=== PATIENT | male | born 1950 | race Caucasian/White ===

== ENCOUNTER 2017-12-19 10:18 | Emergency (ER) | payer MEDICARE ==
[2017-12-19] MEDS ORDERED: Ibuprofen 600 MG TAB ONE (10:57)
--- NOTE | 2017-12-19 11:16 | RAD ---
CHEST 2 VIEWS: Date: 12/19/17 COMPARISON: 11/11/14. HISTORY: Trauma, pain to left side of chest, left ribs. FINDINGS: No pneumothorax, pleural fluid, focal consolidation, or alveolar edema. Heart and mediastinal contour s appear grossly unremarkable. Incompletely imaged lumbar spine postoperative hardware is present. Th ere is multilevel anterior osteophyte formation within the thoracic spine. IMPRESSION: No acute findings. POS: [facility]
--- NOTE | 2017-12-19 11:16 | RAD ---
2 VIEWS LEFT FOREARM: Date: 12/19/17 COMPARISON: None. HISTORY: Fall, trauma, pain. FINDINGS: There is no fracture or evidence of dislocation seen. Probable soft tissue swelling is seen involving the dorsal lateral aspect of the mid forearm. IMPRESSION: Soft tissue swelling with no displaced fracture or evidence of dislocation. POS: [facility]
== END 2017-12-19 11:34 | disposition home or self-care (01) ==
LOC: SCSER 10:18
DX: S50.12XA Contusion of left forearm, initial encounter (principal); I48.91 Unspecified atrial fibrillation; E11.9 Type 2 diabetes mellitus without complications; Z79.899 Other long term (current) drug therapy; Z79.82 Long term (current) use of aspirin; W18.00XA Striking against unspecified object with subsequent fall, initial encounter
CPT/HCPCS: 71046

== ENCOUNTER 2018-06-01 08:47 | Inpatient (IN) | payer MEDICARE ==
[2018-06-01] MEDS ORDERED: Acetaminophen 500 MG TAB ONE (09:04)
[2018-06-01] MEDS ORDERED: Adacel (T-DAP) 0.5 ML VIAL ONE (09:04)
[2018-06-01] MEDS ORDERED: Ondansetron PF 4 MG/2 ML Vial ONE (10:01)
[2018-06-01] MEDS ORDERED: Bacitracin Zinc 1 Packet ONE (10:12)
[2018-06-01 10:20] LABS: #Eosinphils 0.1 thou/uL (0.0-0.7); #Lymphocytes 0.8 thou/uL (1.20-3.40); #Monocytes 0.5 thou/uL (0.11-0.59); #Neutrophils 4.5 thou/uL (1.40-6.50); %Basophils 0.8 % (0.0-1.0); %Eosinophils 2.4 % (0.0-10.0); %Lymphocytes 13.4 % (21.0-51.0); %Monocytes 7.8 % (0.0-10.0); %Neutrophils 75.7 % (42.0-75.0); Hemoglobin 14.8 g/dL (14.0-18.0); Mean Corpuscular HGB CONC 32.2 g/dL (32.0-36.0); Mean Corpuscular Hemoglobin 27.9 pg (27.0-31.0); Mean Corpuscular Volume 86.6 fL (78.0-98.0); Mean Platelet Volume 7.7 fL (7.4-10.4); Platelet Count 122 thou/uL (130-400); RBC Distribution Width 13.6 % (11.5-14.5); Red Blood Cell (RBC) Count 5.29 mill/uL (4.70-6.10); White Blood Cell (WBC) Count 5.9 thou/uL (4.8-10.8)
[2018-06-01 10:23] LABS: INR-International Normal Ratio 1.1; Prothrombin Time 14.4 SEC (12.0-14.7)
[2018-06-01 10:24] LABS: PTT 34.6 SEC (22.9-36.1)
--- NOTE | 2018-06-01 10:36 | CT ---
CT BRAIN NONCONTRAST: DATE: 06/01/2018 TIME: 9:18 a.m. HISTORY: A 67-year-old male status post acute head trauma from fall. Dr. Jimenez reported the subdural hematoma, by telephone, to Dr. Edwardo Mena, of the [facility] Emergency Department, at 9:28 a.m. on 06/01/2018. FINDINGS: There is a small, thin right lateral subdural temporal acute hematoma, which measures up to 0.5 cm in transverse dimension. There is right posterior parietal scalp soft tissue swelling. There is no intraaxial acute hemorrhag e. No mass effect, midline shift, extraaxial fluid collection, or obstructive hydrocephalus. Tiny o ld lacunar infarction in the anterior limb of the left internal capsule and also at the head of the l eft caudate nucleus. No calvarial fracture identified. IMPRESSION: Acute, traumatic, small, right, lateral, supratentorial, subdural hematoma, currently without mass ef fect. CODE VINCE SIMMONS R POS: [facility]
--- NOTE | 2018-06-01 10:39 | CT ---
CT CERVICAL SPINE PERFORMED WITHOUT CONTRAST ENHANCEMENT: HISTORY: Neck pain after fall. FINDINGS: The vertebral bodies are normal in height. There is some prominent anterior osteophytic change. The re is mild disk narrowing at C4-C5, C5-C6, and C6-C7. The facets appear to be in normal alignment. At the C3-C4 level, there is some posterior osteophytic change, which may be related to calcification of the posterior longitudinal ligament. There is a mild degree of canal narrowing and some borderli ne bilateral foraminal narrowing. A similar osteophytic midline projection is seen at C5-C6, again w ith mild canal stenosis. Posterior osteophytic change at C6-C7 is also associated with mild canal na rrowing. There is no CT evidence for fracture. The lung apices are clear. IMPRESSION: No CT evidence of fracture of the cervical spine. POS: [facility]
[2018-06-01 10:44] LABS: ALT (SGPT) 24 U/L (8-55); AST (SGOT) 19 U/L (5-34); Albumin 3.8 g/dL (3.4-4.8); Alkaline Phosphatase 78 U/L (40-150); Anion Gap 13 mmol/L (10-20); BUN (Urea Nitrogen) 20 mg/dL (8.4-25.7); Bilirubin, Total 1.1 mg/dL (0.2-1.2); Calc. Creatinine Clearance 0 mL/min (70-130); Calcium 9.5 mg/dL (7.8-10.44); Carbon Dioxide 28 mmol/L (23-31); Chloride 104 mmol/L (98-107); Estimated GFR-MDRD 69; Globulin 2.8 g/dL (2.4-3.5); Glucose 162 mg/dL (80-115); Potassium 4.6 mmol/L (3.5-5.1); Protein, Total 6.6 g/dL (5.8-8.1); Sodium 140 mmol/L (136-145)
--- NOTE | 2018-06-01 12:36 | CON-2 ---
DATE OF CONSULTATION: 06/01/2018 ATTENDING PHYSICIAN: Dr. Ralph Su. HISTORY OF PRESENT ILLNESS: The patient is a 67-year-old male with a past medical history of coronary artery disease, atrial fibrillation, type 2 diabetes, peripheral neuropathy on daily 325 mg aspirin, presents to emergency department at [facility] for head injury foll owing mechanical fall. The patient reports he was getting out of bed this morning and lost his footi ng causing him to fall backwards and hitting his head on a metal table, began complaining of headache and some neck and shoulder pain following this event. He was evaluated at [facility] with CT of the head and neck which was notable for a small right-sided subdural hematoma without midline s hift. CT of the cervical spine was negative for acute injury. Neurosurgery was consulted for furthe r evaluation of this injury and seen this patient at the bedside at [facility]. He is complain ing of some bilateral shoulder discomfort and mild headache. He has a GCS of 15 and no focal neurolo gic deficits. PAST MEDICAL HISTORY: Peripheral neuropathy, coronary artery disease, atrial fibrillation, type 2 di abetes. PAST SURGICAL HISTORY: Laminectomy and diskectomy in 2015, right knee surgery x3, left knee surgery x3, cholecystectomy and hernia repair. SOCIAL HISTORY: Patient lives at home. He does not smoke, drink or use any drugs. FAMILY HISTORY: Noncontributory. CURRENT MEDICATIONS: Lyrica 150 mg tabs q.i.d., gabapentin 600 mg tabs 1200 mg every day, aspirin 32 5 mg tab 1 tab p.o. daily. REVIEW OF SYSTEMS: Per HPI. PHYSICAL EXAMINATION: CONSTITUTIONAL: Awake, alert, no acute distress. GCS of 15. VITAL SIGNS: BP is 116/71, pulse 90, respiration rate is 18, temperature is 97.9. The patient 99% o n room air. HEAD: He has a small laceration recently to the right posterior aspect of the head. EYES: PERRLA. Extraocular movements intact. NECK: Nontender to palpation over the cervical spine. He has mild tenderness to palpation over bila teral paraspinal musculature. CARDIOVASCULAR: Regular rate and rhythm. RESPIRATORY: The patient has symmetric chest expansion, he is breathing comfortably. BACK: Nontender to palpation. Free active range of motion. MUSCULOSKELETAL: Free active range of motion of all extremities. No focal motor weakness, no reflex asymmetry. NEUROLOGIC: A and O x4. GCS 15. Steady gait. ASSESSMENT AND PLAN: This is a 67-year-old male status post mechanical fall with a small right-sided subdural hematoma on 325 mg aspirin daily, who will be admitted to the ICU for q.1 neuro checks over the next 8 hours and repeat a[address] CT head. Head of the bed will be elevated at 30 degrees and systol ic blood pressure goal is less than 160. I discussed this plan with Dr. Su who also see the maribel valencia in the morning.
[2018-06-01 13:45] VITALS: BMI 35.2
[2018-06-01] MEDS ORDERED: HYDROcodone/Acetaminophen 5/325 mg Tablet PO PRN ×2 (13:50)
[2018-06-01] MEDS ORDERED: Ondansetron ODT 4 MG TAB SL PRN (13:50)
[2018-06-01] MEDS ORDERED: Ondansetron PF 4 MG/2 ML Vial IVP PRN ×2 (13:50→17:20)
[2018-06-01] MEDS ORDERED: Prevnar 13-Val Conj/PF 0.5 ML SYRINGE IM ONE (15:30)
[2018-06-01] MEDS ORDERED: traMADol HCl 50 MG TAB PO PRN ×2 (17:20)
[2018-06-01] MEDS ORDERED: Dextrose 50% Abboject 50 ML SYRINGE SLOW IVP PRN (17:20)
[2018-06-01] MEDS ORDERED: hydrALAZINE 20 MG/ML VIAL SLOW IVP PRN (17:20)
[2018-06-01] MEDS ORDERED: Sodium Chloride 0.9% 1,000 ML IV SCH (17:20)
[2018-06-01] MEDS ORDERED: Ondansetron ODT 4 MG TAB PO PRN (17:20)
[2018-06-01] MEDS ORDERED: Insulin Regular 300 UNITS/3 ML VIAL SC PRN (17:20)
[2018-06-01] MEDS ORDERED: Dextrose 5% in Water 1,000 ML IV PRN (17:20)
--- NOTE | 2018-06-01 17:27 | HP ---
DATE OF ADMISSION: 06/01/2018 REQUESTING PHYSICIAN: Edwardo Mena M.D. ATTENDING SURGEON: Dr. Marion. CONSULTATION: Neurosurgery, Dr. Su. HISTORY OF PRESENT ILLNESS: The patient is a 67-year-old man who reportedly got up this mo rning from his bed and suddenly fell over falling backwards, hitting the corner of a metal table. Th e patient is unsure of how long he had loss of consciousness, but states that it appeared to be very brief. His brought him to the Emergency Department in [facility] where he underwent evaluation and examination. It was noted to have a small right-sided subdural hematoma, at which marisa e we were asked to evaluate the patient for admission and obtain neurosurgical consultations. The pa tient does take a full strength aspirin per day, has a history of atrial fibrillation and diabetes. Patient states that he has fallen few times, but not to this degree over the last few weeks. He only had one other episode where he felt that he completely blacked out. The patient denies having evalu ation by his primary care provider for his syncope. The patient denies having any chest pain, shortn ess of breath, racing of heart or spinning effects before during or after his falls. PAST MEDICAL HISTORY: Coronary artery disease, type 2 diabetes, atrial fibrillation, peripheral neur opathy. PAST SURGICAL HISTORY: Hernia repair, cholecystectomy, left knee surgery x3, right knee surgery x2, laminectomy and diskectomy. FAMILY HISTORY: Diabetes. SOCIAL HISTORY: Patient works part-time at a store. He lives at home with his spouse. He denies dr shirin, tobacco or alcohol use. CURRENT MEDICATIONS: Lyrica, gabapentin, and aspirin. REVIEW OF SYSTEMS: Twelve point review of systems is negative as otherwise stated. PHYSICAL EXAMINATION: VITAL SIGNS: Temperature is 97.8, heart rate 71, blood pressure 134/93, respirations 16, oxygen satu ration is 98% on room air. GENERAL: Patient is awake, alert, and oriented x3. Kacey coma scale 15. He is sitting up on the side of the bed. The patient did undergo orthostatic vital signs and said that he did have a slight bit of dizziness upon standing, but not near the degree that he had early this morning. HEENT: Head is normocephalic with a small contusion and small abrasion/laceration to the right poste rior aspect. Eyes: Extraocular motion intact. PERRLA bilaterally. Ears are atraumatic without dis charge. Nose is atraumatic without discharge. Oropharynx is clear. NECK: Nontender. Trachea is midline. No JVD. CHEST: Clear to auscultation with good inspiratory and expiratory effort. HEART: Regular rate and rhythm. ABDOMEN: Soft, flat, nontender with active bowel sounds. Pelvis is stable. EXTREMITIES: Neurovascularly intact x4. Capillary refill is less than 3 seconds. Pulses are 2+. BACK: Atraumatic and nontender. LABORATORY DATA: White blood cell count 5.9, hemoglobin 14.8, hematocrit 45.8, platelets 122. Sodiu m 140, potassium 4.6, chloride 104, CO2 of 28, BUN 20, creatinine 1.06, glucose 162. LFTs are unrema rkable. PT 14, INR 1.1, PTT 35. RADIOGRAPHS: CT of the brain without contrast shows an acute, traumatic, small, right, lateral, supr atentorial, subdural hematoma currently without mass effect. CT of the C-spine without contrast show s no CT evidence of fracture of the cervical spine. ASSESSMENT AND PLAN: 1. Status post ground level fall. 2. Small right-sided subdural hematoma, on aspirin. 3. Small scalp contusion and abrasion. 4. Syncope. 5. History of atrial fibrillation. 6. History of diabetes. 7. History of peripheral neuropathy. Plan will be to admit to the [facility] for frequent neuro exams with the plan of a repeat head CT in the [facility], sooner if the patient has a decline of 2 points or more in his [place] coma scale. We will o rder EKG, orthostatic vitals, labs, echo, transthoracic and carotids for his syncopal workup. Nonnar cotic pain medication until his repeat CT. The evaluation, examination, laboratory and radiographic findings will be discussed with Dr. Marion after this dictation.
[2018-06-01] MEDS: Acetaminophen 500 MG TAB PO SCH ×2 (17:51→18:21)
--- NOTE | 2018-06-01 17:54 | CON ---
DATE OF CONSULTATION: 06/01/2018 REASON FOR CONSULTATION: Atrial fibrillation. HISTORY OF PRESENT ILLNESS: Mr. Donald is a 67-year-old gentleman who has a previous history of atr ial fibrillation. He states he see someone in our office, but cannot give me a name. He states he h as not been on anticoagulation therapy. It has been his choice. He states at one point he was on to o many medications and stopped them all about 2 years ago. He was followed by Dr. Davide Askew. He recently had a fall. He states his legs got weak. He states he did not pass out. He then develo ped a right-sided subdural hematoma. From a CV standpoint, he denies chest pain, pressure, heart flutters, palpitations, previous syncope. PAST MEDICAL HISTORY: As above including diabetes mellitus, peripheral neuropathy, laminectomy, disk ectomy, right knee surgery, cholecystectomy, hernia repair. SOCIAL HISTORY: No current tobacco or alcohol use. HOME MEDICATIONS: Lyrica, gabapentin, and aspirin. REVIEW OF SYSTEMS: A 10-point review of systems was reviewed and as above, otherwise negative. PHYSICAL EXAMINATION: VITAL SIGNS: Blood pressure 134/93, pulse 73, temperature afebrile. GENERAL: Patient is a pleasant male who is in no acute distress. The patient appears his stated age . NEUROLOGIC: The patient is alert and oriented times 3 with no focal neurologic deficits. HEENT: Sclerae without icterus. Mouth has moist mucous membranes with normal pallor. NECK: No JVD. Carotid upstroke brisk. No bruits bilaterally. LUNGS: Clear to auscultation with unlabored respirations. BACK: No scoliosis or kyphosis. CARDIAC: Irregularly irregular. No significant rubs, murmurs, thrills, or gallops noted throughout the precordium. PMI is not displaced. There is no parasternal heave. ABDOMEN: Soft, nontender, nondistended. No peritoneal signs present. No hepatosplenomegaly. No abnormal striae. EXTREMITIES: 2+ femoral and 2+ dorsalis pedis pulses. No cyanosis, clubbing, or edema. SKIN: No gross abnormalities. PERTINENT LABORATORY DATA: Hemoglobin 14.8, potassium 4.6, sodium 140, creatinine 1.06. IMPRESSION: 1. Atrial fibrillation. 2. Subdural hematoma. RECOMMENDATIONS: At this point, we will avoid any anticoagulation therapy due to recent subdural hem atoma. He is also not interested in pursuing any anticoagulation therapy. We would continue rate co ntrol. He appears to be in chronic atrial fibrillation. His symptoms per his history did not appear consistent with syncope. We would continue to monitor on tele.
[2018-06-01 18:18] LABS: Magnesium 1.9 mg/dL (1.6-2.6); Phosphorus 2.7 mg/dL (2.3-4.7)
[2018-06-01] MEDS: Famotidine 20 MG TAB PO SCH (20:24)
[2018-06-01] MEDS ORDERED: Pregabalin 75 MG CAP PO SCH (21:00)
[2018-06-01] MEDS ORDERED: Gabapentin 400 MG CAP PO SCH (21:00)
[2018-06-01] MEDS: Pregabalin 75 MG CAP PO SCH (22:51)
[2018-06-02] MEDS: Acetaminophen 500 MG TAB PO SCH ×3 (00:30→11:16)
[2018-06-02 04:15] LABS: #Eosinphils 0.2 thou/uL (0.0-0.7); #Lymphocytes 0.7 thou/uL (1.20-3.40); #Monocytes 0.4 thou/uL (0.11-0.59); #Neutrophils 3.1 thou/uL (1.40-6.50); %Lymphocytes 15.8 % (21.0-51.0); %Monocytes 9.4 % (0.0-10.0); %Neutrophils 70.8 % (42.0-75.0); Hemoglobin 13.5 g/dL (14.0-18.0); Mean Corpuscular HGB CONC 32.3 g/dL (32.0-36.0); Mean Corpuscular Hemoglobin 29.1 pg (27.0-31.0); Mean Platelet Volume 7.2 fL (7.4-10.4); Platelet Count 132 thou/uL (130-400); RBC Distribution Width 14.1 % (11.5-14.5); Red Blood Cell (RBC) Count 4.62 mill/uL (4.70-6.10); White Blood Cell (WBC) Count 4.4 thou/uL (4.8-10.8)
[2018-06-02 04:30] LABS: Anion Gap 11 mmol/L (10-20); BUN (Urea Nitrogen) 22 mg/dL (8.4-25.7); Calc. Creatinine Clearance 128 mL/min (70-130); Calcium 8.8 mg/dL (7.8-10.44); Carbon Dioxide 26 mmol/L (23-31); Chloride 103 mmol/L (98-107); Estimated GFR-MDRD 70; Glucose 153 mg/dL (80-115); Phosphorus 2.9 mg/dL (2.3-4.7); Potassium 3.8 mmol/L (3.5-5.1); Sodium 136 mmol/L (136-145)
[2018-06-02] MEDS: Gabapentin 400 MG CAP PO SCH ×2 (04:34→11:16)
[2018-06-02 04:54] LABS: Magnesium 1.8 mg/dL (1.6-2.6)
[2018-06-02] MEDS ORDERED: Tamsulosin HCl 0.4 MG CAP PO SCH (09:30)
--- NOTE | 2018-06-02 09:33 | ULT ---
BILATERAL CAROTID DUPLEX ULTRASOUND: HISTORY: Syncope. FINDINGS: Real-time color Doppler evaluation of the right and left carotid systems was performed. The left ashok e is very difficult to image. On the right side, peak systolic velocities of the common carotid were 95 cm/s. Internal carotid hanna ocities are 63 cm/s. External carotid velocities are 41 cm/s. On the left side, peak systolic velocities of the common carotid were 62 cm/s. Internal carotid velo cities were 27 cm/s. External carotid velocities were 41 cm/s. Vertebral flow is antegrade bilaterally. IMPRESSION: 1. Technically difficult examination with difficulty in imaging the left internal carotid artery. D istally, internal carotid could not be seen. Flow within the left internal carotid appears reduced r aising the possibility that there may be some flow-limiting lesion. I would recommend consideration for CT angiography of the neck for better assessment, particularly if the patient has symptoms that w ould relate to the left circulation. POS: [facility]
--- NOTE | 2018-06-02 09:38 | PRG ---
DATE OF SERVICE: 06/02/2018. SUBJECTIVE: The patient was seen and examined, I agree with Sangeetha Walton PA-C's evaluation on 08/2017. The patient is a 67-year-old man with a mechanical fall. He was taking an aspirin a day. H e has a very subtle right subdural hematoma, which is stable on followup. He was neurologically inta ct. The patient can safely be discharged and there are no specific followup recommendations. He can resu me his aspirin in 2 weeks.
--- NOTE | 2018-06-02 09:48 | HP ---
CHIEF COMPLAINT: Fall. HISTORY OF PRESENT ILLNESS: The patient is a 67-year-old male, who reports having to get up multiple times a night to urinate, said the last time was about 7:00 a.m. when he got up, lost his balance, f ell and hit the corner of a metal table on his back of his head, sustained a laceration, quite a bit of bleeding. He was brought in by EMS. He currently says he feels pretty good. His vision is okay. He is not having any numbness or tingling: No neck pain, no dyspnea. PAST MEDICAL HISTORY: Significant for diabetes, atrial fibrillation, coronary artery disease, and pe ripheral neuropathy. PAST SURGICAL HISTORY: He has had a hernia repair, cholecystectomy, he has had bilateral left total knee replacement, laminectomy and diskectomy. MEDICATIONS: Include Lyrica, gabapentin, and aspirin. SOCIAL HISTORY: He is . No tobacco or alcohol. PHYSICAL EXAMINATION: VITAL SIGNS: Temperature 97.9, pulse 90, blood pressure 144/95. GENERAL: He is a morbidly obese male, in no apparent distress. GCS of 15. He has some kamran in h is posterior scalp. There is no active bleeding, a small hematoma. HEENT: His pupils equal, round, and reactive. Extraocular motor intact. Pharynx clear. Good denti tion. NECK: Supple, no tenderness. His trachea is midline. LUNGS: Clear. HEART: Irregularly irregular. ABDOMEN: Morbidly obese, soft, nondistended, nontender. Pelvis is unremarkable. EXTREMITIES: He has bilateral well-healed surgical scars on his knees. Pulses are 1+ distally. He has normal neurologic function, sensation, and motor. BACK: Nontender. IMAGING: Brain CT shows a small right lateral supratentorial subdural hematoma without mass effect. Cervical spine CT is unremarkable. Carotid study is unremarkable. ASSESSMENT: Traumatic subdural hematoma. PLAN: We will observe Neurosurgical consult, Cardiology consult.
--- NOTE | 2018-06-02 10:03 | CT ---
PRELIMINARY REPORT/[facility]/EMERGENTY AFTER-HOURS PROCEDURE CT Head Without Intravenous Contrast EXAM DATE/TIME: 06/02/2018 4:22 AM CLINICAL HISTORY: 67 years old, male; Injury or trauma; Fall; Follow-up exam; Blunt trauma (contusions or hematomas); W ithout loss of consciousness; Patient HX: Follow up exam, PT has nueropathy in both legs TECHNIQUE: Axial computed tomography images of the head/brain without intravenous contrast. COMPARISON: CT Brain WO Con 06/01/2018 9:16 AM FINDINGS: Brain: Volume loss and chronic small vessel ischemic change. No brain edema. No intracranial hemorrha ge. Ventricles: Normal. No ventriculomegaly. Bones/joints: Normal. No acute fracture. Sinuses: Normal as visualized. No acute sinusitis. Mastoid air cells: Normal as visualized. No mastoid effusion. Soft tissues: Normal. IMPRESSION: No acute brain findings. Thank you for allowing us to participate in the care of your patient. Dictated and Authenticated by: Buster Giang MD 06/02/2018 4:52 AM Central Time ([place] & [place]) FINAL REPORT EMERGENT AFTER HOURS CT OF BRAIN PERFORMED WITHOUT CONTRAST ENHANCEMENT: HISTORY: Fall with head injury, followup. COMPARISON: Prior day's exam. FINDINGS: The ventricular and cisternal system is within normal limits for patient's age. There is some decrea sed attenuation of the periventricular white matter. A small right-sided subdural hematoma noted on the previous examination persists with some minimal residual subdural remaining. It is slightly less prominent than on the prior examination. No mass effect. No evidence of any fracture. The mastoid air cells and visualized sinuses are clear. IMPRESSION: 1. Slight decrease in the conspicuity to the right subdural hematoma which appears slightly smaller than on the prior examination. 2. This report is in disagreement with the temporary report that issued by [facility]. POS: [facility]
[2018-06-02] MEDS: Famotidine 20 MG TAB PO SCH (10:10)
[2018-06-02] MEDS: Pregabalin 75 MG CAP PO SCH ×2 (10:10→13:20)
--- NOTE | 2018-06-02 11:47 | RAD ---
PORTABLE CHEST: HISTORY: Syncope. COMPARISON: 12/19/2017 exam. FINDINGS: Heart size is borderline. Mediastinal structures are unremarkable. The lungs are clear of infiltrat es. IMPRESSION: No active intrathoracic disease. Stable exam. POS: [facility]
[2018-06-02] MEDS ORDERED: Iopamidol 370 76% 100 ML VIAL ONE (13:59)
--- NOTE | 2018-06-02 14:58 | CT ---
CT ANGIO OF NECK PERFORMED WITH INTRAVENOUS CONTRAST ENHANCEMENT WITH 3D RECONSTRUCTIONS: HISTORY: Ultrasound examination which is technically difficult on the left side but showed what appeared to be some reduced velocities in the left internal carotid artery. This was recommended as followup. FINDINGS: The lung apices are clear. There is what appears to be some tracheal malacia-type change of the memb ranous portion of the trachea with narrowed AP dimension to the trachea incidentally noted. Thyroid gland is normal in appearance. No significant jugular chain adenopathy. The parapharyngeal spaces appear clear. The parotid and submandibular gland regions appear unremarkable. The visualize d brain parenchyma is normal. The angiographic portion of the study yielded a good examination. There is a separate origin of the left common carotid artery from the aortic arch. The vertebral arteries show slightly larger right v ertebral as compared to the left, particularly distally. On the right side, the right common carotid artery is very tortuous. There is no evidence of any sig nificant stenosis of the common, internal, or external carotid arteries by NASCET criteria. On the left side, the left common carotid artery is unremarkable in appearance. There is some plaque formation of the origin of the left internal carotid artery which is also somewhat medially placed i n position but appears patent and there are no signs of any significant stenosis by NASCET criteria. The external carotid artery is unremarkable. IMPRESSION: No evidence of any significant stenosis of either internal carotid arteries by NASCET criteria. POS: [facility]
[2018-06-02 15:20] VITALS: BP 133/73; TEMP 98.5
[2018-06-03] MEDS ORDERED: Tamsulosin HCl 0.4 MG CAP PO SCH (09:00)
--- NOTE | 2018-06-04 11:55 | EKG ---
Test Reason : Blood Pressure : / mmHG Vent. Rate : 077 BPM Atrial Rate : 234 BPM P-R Int : 000 ms QRS Dur : 132 ms QT Int : 402 ms P-R-T Axes : 000 229 171 degrees QTc Int : 454 ms Atrial fibrillation with premature ventricular or aberrantly conducted complexes Non-specific intra-ventricular conduction block Inferior infarct (cited on or before 01-JUN-2018) Abnormal ECG Confirmed by VENTURA LUIS ([id number]) on 06/04/2018 11:54:59 AM Referred By: THIERRY Confirmed By:VENTURA LUIS
--- NOTE | 2018-06-04 13:50 | DIS ---
DATE OF ADMISSION: 06/01/2018 DATE OF DISCHARGE: 06/02/2018 ADMISSION DIAGNOSES: 1. Status post ground level fall. 2. Small right-sided subdural hematoma, on aspirin. 3. Small scalp contusion and abrasion. 4. Syncope. 5. History of atrial fibrillation, diabetes, and peripheral neuropathy. CONSULTATIONS: Neurosurgery, Dr. Su. PROCEDURES: None. HISTORY OF PRESENT ILLNESS: The patient is a 67-year-old man who reportedly had a fall at home, whic h he was initially described as syncopal in nature. The patient was brought to the emergency departm ent after his fall, evaluated, examined and was noted to have the above injuries. He would be admitt ed to the [facility] for close followup and serial examinations and the following morning would undergo rep eat head CT, which showed a very stable intracranial hemorrhage, specifically a small right subdural hematoma. The patient would also undergo echocardiogram and carotid Doppler as a part of his syncopa l workup, both of which were unremarkable. The patient's lab work and EKG were also unremarkable. T he patient will be discharged home. He may follow up with the trauma clinic as needed, follow up wit h his primary care provider within a week to continue his evaluation and will follow up with Neurosur jeaneth per their instructions. At the time of discharge, the patient was tolerating a diet. His pain was controlled with nonnarcotic pain medications and he was ambulatory with minimal assistance.
== END 2018-06-02 15:38 | disposition home or self-care (01) | DRG 84 ==
LOC: SCSER 08:47 → CCU 13:35 → IMCU/EMU 18:40 → 2NO 06-02 09:53
PROVIDERS: ADMIT Surgery; ATTEND Surgery
DX: S06.5X9A Traumatic subdural hemorrhage with loss of consciousness of unspecified duration, initial encounter (principal); W01.190A Fall on same level from slipping, tripping and stumbling with subsequent striking against furniture, initial encounter; E11.40 Type 2 diabetes mellitus with diabetic neuropathy, unspecified; I48.91 Unspecified atrial fibrillation; I25.10 Atherosclerotic heart disease of native coronary artery without angina pectoris; Z96.653 Presence of artificial knee joint, bilateral; Z79.82 Long term (current) use of aspirin; R29.6 Repeated falls; S00.03XA Contusion of scalp, initial encounter
CPT/HCPCS: 12001; 36415; 36416; 70450; 70498; 71045; 72125; 80048; 80053; 83735; 84100; 85025; 85610; 85730; 90471; 90715; 93005; 93010; 93880; 96374; 96375; G8978-GP-CJ; G8979-GP-CI; J2270; J2405

== ENCOUNTER 2018-07-03 07:23 | Outpatient (CLI) | payer MEDICARE ==
[2018-07-03] MEDS ORDERED: Gadobenate Dimeglumine 529 MG/1 ML (20ML VIAL) ONE (09:00)
--- NOTE | 2018-07-03 09:20 | CT ---
CT BRAIN: History: History of previous fall, small previous subdural hematoma. Technique: Noncontrast enhanced CT of the brain obtained. FINDINGS: There has been removal of the right parietal scalp kamran. No evidence of acute intracranial masses, hemorrhages, or strokes seen. Previously noted small right middle cranial fossa subdural hematoma has resolved. No evidence of acut e or chronic subdural or intracranial hematoma is seen. No evidence of encephalomalacic changes seen. No evidence of strokes seen. There is interval development of some mild right maxillary sinus mucosal thickening. There is also an air fluid level in the left maxillary sinus compatible with sinusitis. These sinus changes were not present on the patient's previous CT. IMPRESSION: No evidence of acute intracranial pathology seen. POS: [facility]
--- NOTE | 2018-07-03 10:20 | MRI ---
MRI CERVICAL SPINE NONCONTRAST ENHANCED: History: Fell two weeks ago with neck pain. Technique: Multiplanar, multisequence noncontrast enhanced MRI cervical spine obtained. FINDINGS: The spinal cord is unremarkable with no evidence of cord, masses, or lesions. C1-2: Unremarkable. C2-3: There is a mild broad based central disc bulge minimally but not significantly compressing the thecal sac. The neural foramen are patent. C3-4: There is a broad based central disc osteophyte complex resulting in mild to moderate compressi on of the thecal sac. There is mild compression of the left paracentral spinal cord. Moderate bilater al C3-4 neural foraminal narrowing is seen. C4-5: Disc desiccation is seen. There is a broad based disc osteophyte complex resulting in mild comp ression of the thecal sac. No significant evidence of cord compression seen. Mild bilateral neural fo raminal narrowing is seen due to uncal vertebral osteophyte hypertrophy. C5-6: Disc desiccation is seen. There is a broad based disc osteophyte complex centrally resulting in minimal but not significant evidence of central stenosis. Mild bilateral C5-6 neural foraminal narro wing is seen due to uncal vertebral osteophyte hypertrophy. C6-7: Mild disc desiccation is seen. There is a minimal broad based disc bulge. No significant eviden ce of central or neural foraminal narrowing is seen. C7-T1: Unremarkable. IMPRESSION: Broad based central disc osteophyte complexes with some thecal sac compression at C2-3, C3-4, C4-5 an d C5-6. Neural foraminal narrowing is also present as described above. No evidence of acute cervical spine abnormality seen. POS: [facility]
--- NOTE | 2018-07-04 10:29 | MRI ---
MRI LUMBAR SPINE WITH AND WITHOUT CONTRAST: HISTORY: The patient fell two weeks ago. Neck and back pain. COMPARISON: 10/01/2015 TECHNIQUE: An MRI of the lumbar spine is performed with and without intravenous Gadolinium administration. Mult isequential, multiplanar imaging is performed. FINDINGS: There is metallic susceptibility artifact secondary to bilateral transpedicular screws at L1, L2, and S1. There is appropriate T1 marrow signal intensity of the lumbar vertebrae. Lumbar spine vertebral body height is maintained. There is no fracture. There is 6 mm of retrolisthesis of L2 upon L3. There is no pathologic enhancement with regard to the vertebral bodies. There is no abnormal enhancement w ithin the thecal sac, including the cauda equina and the conus medullaris. There is no significant STIR hyperintensity to suggest vertebral body edema due to fracture. No MR e vidence of ligamentous injury. There is post surgical change with laminectomy defects at L2, L3, L4, and L5. There appears to be a prosthesis at the L4-L5 level. T12-L1: No significant central canal stenosis. The neural foramina are patent. L1-L2: Adequate disk hydration. Mild loss of disk space height. Generalized disk bulge flattens th e ventral thecal sac. Mild ligamentum flavum thickening and facet hypertrophy. Mild central canal s tenosis. Mild bilateral neural foraminal narrowing. L2-L3: Posterior laminectomy defect. Generalized disk bulge, ligamentum flavum thickening, and face t hypertrophy result in mild central canal stenosis. Moderate bilateral neural foraminal narrowing. L3-L4: Posterior laminectomy defect. No high-grade central canal stenosis or high-grade neural fora tory narrowing. L4-L5: Posterior laminectomy defect. There is a disk prosthesis. No high-grade central canal steno sis. Mild bilateral foraminal narrowing. L5-S1: Stable loss of disk space height. Stable T2 hyperintensity and T1 hyperintensity along the a nterior aspect of the disk. Laminectomy defect is identified. No high-grade central canal stenosis. Moderate bilateral neural foraminal narrowing. On the post contrast images, there is enhancing scar tissue at the laminectomy defect site, greatest at the L5-S1 level. There does appear to be some enhancing scar tissue in the right subarticular zon e, at L5-S1, encompassing the traversing right S1 nerve root. IMPRESSION: 1. Postoperative changes of the lumbar spine, as above. 2. No evidence of high-grade central canal stenosis. Varying degrees of foraminal narrowing, as det shilpa above. 3. Enhancing scar tissue in the right subarticular zone, at L5-S1, encompassing the traversing right S1 nerve root. 4. Grade 1 retrolisthesis of L2 upon L3. POS: [facility]
== END 2018-07-03 07:24 | disposition home or self-care (01) ==
LOC: SCSCT 07:23
PROVIDERS: ATTEND Neurological Surgery
DX: S06.5X0A Traumatic subdural hemorrhage without loss of consciousness, initial encounter (principal); M54.5 Low back pain; M47.12 Other spondylosis with myelopathy, cervical region; M48.061 Spinal stenosis, lumbar region without neurogenic claudication; M48.02 Spinal stenosis, cervical region; M48.07 Spinal stenosis, lumbosacral region; M25.78 Osteophyte, vertebrae; M43.16 Spondylolisthesis, lumbar region; Z98.890 Other specified postprocedural states
CPT/HCPCS: 70450; 72141; 72158; 82565; A9579

== ENCOUNTER 2020-04-01 06:49 | Day surgery (SDC) | payer MEDICARE ==
[2020-03-30 12:28] VITALS: BMI 31.6
[2020-04-01] MEDS ORDERED: Vancomycin 1 GM/200 ML BAG ONE (08:10)
[2020-04-01] MEDS ORDERED: Sodium Chloride 0.9% 100 ML ONE (08:10)
[2020-04-01] MEDS ORDERED: cefTRIAXone\\ROCEPHIN 1 GM VIAL ONE (08:10)
[2020-04-01] MEDS ORDERED: Iothalamate Meglumine 60% 50 ML VIAL FS ONE (08:21)
[2020-04-01] MEDS ORDERED: Fentanyl 100 MCG/2 ML VIAL ONE ×2 (08:28→12:08)
[2020-04-01] MEDS ORDERED: Glycopyrrolate 0.2 MG/ML 5 ML SYRINGE ONE (10:14)
[2020-04-01] MEDS ORDERED: EPHEDRINE 25 MG/5 ML SYRINGE ONE (10:14)
[2020-04-01] MEDS ORDERED: PHENYLEPHRINE-NS 100 MCG/ML 10 ML SYRINGE ONE (10:14)
[2020-04-01] MEDS ORDERED: Lidocaine 1% PF 5 ML VIAL ONE (10:14)
[2020-04-01] MEDS ORDERED: PROPOFOL 200 MG/20 ML VIAL ONE (10:14)
[2020-04-01] MEDS ORDERED: Ondansetron PF 4 MG/2 ML Vial ONE (10:14)
[2020-04-01] MEDS ORDERED: Rocuronium Bromide 10 MG/ML (10ML VIAL) ONE (10:14)
[2020-04-01] MEDS ORDERED: Dexamethasone 20 MG/5 ML VIAL ONE (10:14)
[2020-04-01] MEDS ORDERED: Esmolol 100 MG/10 ML VIAL ONE (11:54)
--- NOTE | 2020-04-01 12:09 | RAD ---
EXAM: Retrograde IVP HISTORY: Stent placement COMPARISON: 03/23/2020 FINDINGS/IMPRESSION: Limited intraoperative fluoroscopic views of the retrograde IVP were submitted f or interpretation. There are bilateral ureteral stents which appear in good position. There appears be a 1.7 cm calcification adjacent to the proximal aspect of the left ureteral stent. There also appe ar to calcifications projecting in the region of the left kidney, unchanged. Contrast is administered showing mild to moderate left hydronephrosis. On the last image, the calcifications prev iously seen are not identified and may have been removed. Postsurgical changes are seen in the spine. Degenerative changes are seen in the spine.
[2020-04-01] MEDS ORDERED: Morphine 4 MG/ML VIAL ONE (12:57)
[2020-04-01] MEDS ORDERED: Morphine 2 MG/ML VIAL ONE ×2 (13:17→13:39)
--- NOTE | 2020-04-01 13:42 | OP ---
DATE OF PROCEDURE: 04/01/2020 PREOPERATIVE DIAGNOSES: 1. Left ureteral stone proximal. 2. Left renal stone, mid addi. POSTOPERATIVE DIAGNOSES: 1. Left ureteral stone proximal. 2. Left renal stone, mid addi. PROCEDURES PERFORMED: 1. Cystoscopy. 2. Removal of left stent. 3. Left flexible ureteroscopy. 4. Laser lithotripsy. 5. Stone retrieval of the large left proximal ureteral stone and a moderate-sized left renal stone. SPECIMENS REMOVED: Stone pieces. They were not sent for analysis as we sent some a few weeks ago. ANESTHETIC: General. ESTIMATED BLOOD LOSS: Minimal. DRAINS PLACED: 6 x 26 Polaris double-J stent on the left without a string attached. FINDINGS: He had a prior 1.8 to 1.9 cm left proximal ureteral stone and a 0.5 cm left mid-calyceal renal stone. He also had a large at least 1.5 cm left lower pole renal stone that we did not attempt treating as he had already been under anesthetic for a couple hours. We did not feel we could start and finish that part of it. INDICATIONS: This is a 69-year-old white male who presented with bilateral ureteral stones and renal insufficiency. He had stents placed probably 3 or 4 weeks ago and left ESWL done. A week or so ago, he had a right flexible ureteroscopy, laser lithotripsy, stone retrieval, and stent replacement, went through that procedures without much difficulty. His creatinine is down to 1.0 currently. He comes in now for a left flexible ureteroscopy, laser lithotripsy, and he has had a prior a couple stones up in the renal collecting system, and if we have enough time and if not kept him asleep too long, then we will look at trying to get rid of these. DESCRIPTION OF PROCEDURE: After obtaining written and verbal consent from the patient after receiving IV antibiotics, he was taken to the operating suite. He was placed in a supine position on the treatment table. He was given a general anesthetic and oral intubation. His Estrella catheter was removed. He was placed in the dorsal lithotomy position and sterilely prepped and draped. Cystoscopy was performed with a 22-Nicaraguan sheath. This was well lubricated and passed under direct vision through the male urethra into the urinary bladder with aid of a 30-degree lens and video camera and monitor. The bladder was filled and emptied a number of times and the distal end of the left double-J stent was brought out through the left ureteral orifice. A guidewire could not be fed through it, so it was removed and then a guidewire was fed up that left side. It went up to the level of the obstructing large proximal stone. We fed a Pollack catheter up to that level, injected contrast, which fairly easily went by it and we then were able to get an angled Glidewire by that up into the renal pelvis and then the Pollack catheter advanced into the renal pelvis. At this point, the Glidewire was removed and a 0.038 guidewire was placed into the region of the renal pelvis and the Pollack catheter was removed. The instruments removed. A dual-lumen ureteral catheter was placed up to the level of the stone and then a stiff blue wire was placed through the 2nd port and this was fairly easily manipulated both the stone into the renal pelvis. The dual-lumen catheter was removed and the long ureteral sheath was passed over the wire. The blue stiff wire using obturator up to just below the stone. The obturator and the guidewire were removed and a flexible ureteroscope was brought in and placed up the level of stone. We then used a holmium laser fiber to break up the stone into smaller and smaller pieces. There was quite a large stone. We used a Nitinol basket to remove some of these fragments. Some of these fragments had gone up into the kidney and removed these with a Nitinol basket. We went ahead and removed actually more little bit larger than 0.5 cm, probably 0.5 x maybe 0.8 cm. This was brought down into the proximal ureter. It was too large to actually get past the proximal ureter, so the basket was kept intact and then we went up adjacent to the basket with the holmium laser and broke this up into smaller and smaller pieces, then removing the basket and then replacing with a new basket. We basketed these pieces out. We then reinspected. He had one much larger stone in the left lower calyceal system. He had been asleep for going on a couple hours and we did think that we could start that part of the procedure and easily finish it, so at this point, the flexible ureteroscope was removed and the ureteral sheath was removed. We did this under direct vision. Looking at the ureter on the way out. Through our remaining guidewire, we back-loaded the cystoscope and passed a Pollack catheter up into area of the renal pelvis, removed the guidewire, injected contrast to fill out the entire collecting system without any extravasation or any obstruction. The guidewire was replaced and the stent was placed over the guidewire, pushing up in place with aid of a pusher, so its proximal end coiled in the renal pelvis and its distal end coiled in the bladder when the wire was removed. At this point, the bladder was drained. The instruments were removed. We did not replace the Estrella catheter. He was taken out of the dorsal lithotomy position, awakened, extubated, and taken by stretcher to recovery room. Job ID: [id number]
== END 2020-04-01 14:50 | disposition home or self-care (01) ==
LOC: SDC 06:49
PROVIDERS: ATTEND Urology
PROC: 0TC48ZZ Extirpation of Matter from Left Kidney Pelvis, Via Natural or Artificial Opening Endoscopic (ICD-10-PCS; principal; 2020-04-01)
PROC: 0TC78ZZ Extirpation of Matter from Left Ureter, Via Natural or Artificial Opening Endoscopic (ICD-10-PCS; 2020-04-01)
PROC: 0T778DZ Dilation of Left Ureter with Intraluminal Device, Via Natural or Artificial Opening Endoscopic (ICD-10-PCS; 2020-04-01)
DX: N13.2 Hydronephrosis with renal and ureteral calculous obstruction (principal); E11.9 Type 2 diabetes mellitus without complications; I10 Essential (primary) hypertension; I48.91 Unspecified atrial fibrillation; Z79.2 Long term (current) use of antibiotics; Z79.899 Other long term (current) drug therapy
CPT/HCPCS: 52356; 74420; J2270; J0696; J1100; J2405; J2704; J3010; J3370; J3490

== ENCOUNTER 2020-04-13 05:54 | Day surgery (SDC) | payer MEDICARE ==
[2020-04-10 10:44] VITALS: BMI 29.0
[2020-04-13] MEDS ORDERED: Vancomycin 1 GM/200 ML BAG ONE (06:04)
[2020-04-13] MEDS ORDERED: cefTRIAXone\\ROCEPHIN 2 GM VIAL ONE (06:04)
[2020-04-13] MEDS ORDERED: Sodium Chloride 0.9% 100 ML ONE (06:05)
[2020-04-13] MEDS ORDERED: Fentanyl 100 MCG/2 ML VIAL ONE ×3 (06:37→10:36)
[2020-04-13] MEDS ORDERED: Iothalamate Meglumine 60% 50 ML VIAL FS ONE (07:43)
[2020-04-13] MEDS ORDERED: PROPOFOL 200 MG/20 ML VIAL ONE (09:34)
[2020-04-13] MEDS ORDERED: Lidocaine 1% PF 5 ML VIAL ONE (09:34)
[2020-04-13] MEDS ORDERED: Ondansetron PF 4 MG/2 ML Vial ONE (09:34)
[2020-04-13] MEDS ORDERED: Morphine 4 MG/ML VIAL ONE (10:09)
--- NOTE | 2020-04-13 10:25 | RAD ---
EXAM: Retrograde IVP HISTORY: Ureteral stent placement for kidney stones COMPARISON: 04/01/2020 FINDINGS/IMPRESSION: Limited intraoperative fluoroscopic views of the retrograde IVP were submitted f or interpretation. There are bilateral ureteral stents which appear in good position. Contrast is instilled in both renal collecting systems with mild to moderate bilateral hydronephrosis. Lithotrips y devices are seen bilaterally in the region of both kidneys. No obvious filling defects are seen. The previously seen large calcific lesion adjacent to the left stent is no longer visualized in this location.
[2020-04-13] MEDS ORDERED: Morphine 2 MG/ML VIAL ONE ×2 (10:30→10:55)
[2020-04-13] MEDS ORDERED: HYDROcodone/Acetaminophen 5/325 mg Tablet ONE (11:53)
--- NOTE | 2020-04-13 14:40 | EKG ---
Test Reason : PREOP Blood Pressure : / mmHG Vent. Rate : 094 BPM Atrial Rate : 080 BPM P-R Int : 000 ms QRS Dur : 106 ms QT Int : 384 ms P-R-T Axes : 000 -13 055 degrees QTc Int : 480 ms Atrial fibrillation Prolonged QT Abnormal ECG When compared with ECG of 11-MAR-2020 07:57, Nonspecific T wave abnormality no longer evident in Inferior leads Confirmed by CHAYITO ADKINS M.D. ([id number]) on 04/13/2020 2:40:19 PM Referred By: BLANCA Confirmed By:CHAYITO ADKINS M.D.
--- NOTE | 2020-04-13 22:45 | OP ---
DATE OF PROCEDURE: 04/13/2020 PREOPERATIVE DIAGNOSIS: Bilateral renal stones. POSTOPERATIVE DIAGNOSIS: Bilateral renal stones. PROCEDURES PERFORMED: Cystoscopy, bilateral ureteroscopy with laser lithotripsy, stone retrieval, and stent replacements. ANESTHESIA: General. ESTIMATED BLOOD LOSS: Less than 50. DRAINS PLACED: 6 x 24 double-J stent bilaterally without strings attached and a 16-Dominican Estrella catheter. FINDINGS: There was a large slightly over centimeter size left lower pole stone with some smaller calyceal stones on the left. On the right, there were just some smaller calyceal stones. We did not send any of the stones for stone analysis as that has been done just recently. DESCRIPTION OF PROCEDURE: After obtaining written and verbal consent from the patient, after receiving IV antibiotics, he was taken to the operating suite. He was placed in a supine position on the treatment table. PlexiPulses were placed on his lower extremities and turned on. He was given a general anesthetic and oral obturator intubation, placed in the dorsal lithotomy position, sterilely prepped and draped. The C-arm was placed over him for monitoring. Cystoscopy was performed with a 22-Dominican sheath. This was well lubricated, passed under direct vision through the male urethra into the urinary bladder with the aid of a 30-degree lens and video camera and monitor. The bladder was filled and emptied a number of times. The left double-J stent was grasped and brought out through the urethral meatus, and a guidewire was fed up and was removed over the guidewire. We placed a dual-lumen catheter up about 3[address] up the ureter and then injected contrast through this. Stone was in the proximal ureter, which was slightly narrow, this is where he had a very large stone treated recently with ureteroscopy. We fed the green wire and blue wire through this up into the renal pelvis, removed this catheter and then brought in the ureteral sheath with obturator and fed that over the blue catheter up into the renal pelvis and then removed the blue catheter and the obturator and passed a flexible ureteroscope up into this region. We then were able to work in initially the middle calyceal regions breaking up smaller stones and very small pieces in this region than on the larger stone in the lower pole calyceal system. Nitinol basket was released some of the pieces and when we were left with nothing, but what appeared to be small left fragments so they should easily pass, the side was terminated. The green wire was left in place, and we backed the sheath out with the ureteroscope in it and there was no evidence of any abnormality of the ureter or any sizable stone fragment. We then backloaded our guidewire through our cystoscope and injected contrast with the Pollack catheter on this side filling out the left collecting system. There was no extravasation. There was a little narrowing of the proximal left ureter, where this large stone was previously seen and treated a week or two ago. We then fed a stent up over the guidewire, pushing up into place with aid of a pusher, so its proximal end coiled in the renal pelvis and its distal end coiled in the bladder. At this point, the right side was done in the same manner. Stones were much smaller and out in the middle and lower calyceal system. Some of these were basketed and removed. The others were just fragmented into very small pieces. Once this was completed, we did a retrograde on that side and there was no evidence of extravasation. There was no evidence of abnormality and the guidewire was left in and a stent was placed over it. After this was done, the bladder was drained. The instruments were removed. The Estrella catheter was sterilely placed. He was taken out of dorsal lithotomy position, awakened, extubated, and taken by amy to recovery room. Job ID: [id number]
== END 2020-04-13 13:28 | disposition home or self-care (01) ==
LOC: SDC 05:54
PROVIDERS: ATTEND Urology
PROC: 0TC48ZZ Extirpation of Matter from Left Kidney Pelvis, Via Natural or Artificial Opening Endoscopic (ICD-10-PCS; principal; 2020-04-13)
PROC: 0TC38ZZ Extirpation of Matter from Right Kidney Pelvis, Via Natural or Artificial Opening Endoscopic (ICD-10-PCS; 2020-04-13)
PROC: 0T788DZ Dilation of Bilateral Ureters with Intraluminal Device, Via Natural or Artificial Opening Endoscopic (ICD-10-PCS; 2020-04-13)
DX: N20.0 Calculus of kidney (principal); E11.9 Type 2 diabetes mellitus without complications; Z79.899 Other long term (current) drug therapy; Z88.6 Allergy status to analgesic agent
CPT/HCPCS: 52356; 74420; 93005; J2270; 93010; J0696; J2405; J2704; J3010; J3370; J3490

== ENCOUNTER 2020-05-20 13:38 | Outpatient (CLI) | payer MEDICARE, OTHER ==
[2020-05-20 16:01] LABS: Hemoglobin 13.1 g/dL (14.0-18.0); Mean Corpuscular HGB CONC 33.1 g/dL (32.0-36.0); Mean Corpuscular Hemoglobin 29.3 pg (27.0-31.0); Mean Corpuscular Volume 88.6 fL (78.0-98.0); Platelet Count 275 thou/uL (130-400); RBC Distribution Width 13.9 % (11.5-14.5); Red Blood Cell (RBC) Count 4.47 mill/uL (4.70-6.10); White Blood Cell (WBC) Count 9.7 thou/uL (4.8-10.8)
[2020-05-20 16:26] LABS: INR-International Normal Ratio 1.1; PTT 42.3 sec (22.9-36.1); Prothrombin Time 14.8 sec (12.0-14.7)
[2020-05-20 16:33] LABS: Anion Gap 11 mmol/L (10-20); BUN (Urea Nitrogen) 13 mg/dL (8.4-25.7); Calc. Creatinine Clearance 0 mL/min (70-130); Calcium 8.5 mg/dL (7.8-10.44); Carbon Dioxide 29 mmol/L (23-31); Chloride 101 mmol/L (98-107); Estimated GFR-MDRD 59; Glucose 139 mg/dL (80-115); Potassium 4.1 mmol/L (3.5-5.1); Sodium 137 mmol/L (136-145)
[2020-05-21 13:16] LABS: SARS-CoV-2 MS2 Positive; SARS-CoV-2 N Gene Negative; SARS-CoV-2 S Gene Negative; SARS-CoV-2 by NAA Not Detected (NotDetected); SARS-CoV-2 orf1ab Negative
== END 2020-05-20 13:39 | disposition home or self-care (01) ==
LOC: LABBT 13:38
PROVIDERS: ATTEND Urology
DX: Z01.812 Encounter for preprocedural laboratory examination (principal); N20.1 Calculus of ureter; Z20.828 Contact with and (suspected) exposure to other viral communicable diseases
CPT/HCPCS: 80048; 85027; 85610; 85730; U0003; 87635

== ENCOUNTER 2020-05-25 07:34 | Day surgery (SDC) | payer MEDICARE ==
[2020-05-22 14:38] VITALS: BMI 29.8
[2020-05-25] MEDS ORDERED: cefOXitin Sodium/Dextrose 2 GM/50 ML BAG ONE (08:09)
[2020-05-25] MEDS ORDERED: Iothalamate Meglumine 60% 50 ML VIAL FS ONE (08:51)
[2020-05-25] MEDS ORDERED: Fentanyl 100 MCG/2 ML VIAL ONE (08:54)
[2020-05-25] MEDS ORDERED: Dexamethasone 20 MG/5 ML VIAL ONE (09:44)
[2020-05-25] MEDS ORDERED: Lidocaine 1% PF 5 ML VIAL ONE (09:44)
[2020-05-25] MEDS ORDERED: PROPOFOL 200 MG/20 ML VIAL ONE (09:44)
[2020-05-25] MEDS ORDERED: Ondansetron PF 4 MG/2 ML Vial ONE (09:44)
[2020-05-25] MEDS ORDERED: PHENYLEPHRINE-NS 100 MCG/ML 10 ML SYRINGE ONE (09:44)
--- NOTE | 2020-05-25 10:23 | RAD ---
EXAM: XR IVP Retrograde PROVIDED CLINICAL HISTORY: Stone removal and stent placement. COMPARISON: 04/13/2020 FINDINGS/IMPRESSION: 14 intraoperative fluoroscopic images of the abdomen are obtained related to bilateral retrograde uro grams. Initial economics instructor image demonstrates bilateral ureteral stents in place. Postoperative changes of the lumbar spine are again seen. No obvious suspicious calcifications are seen along the course of either ureter. Subsequent imaging demonstrates removal of the ureteral stents with bilateral retrograde urograms performed. No definite persistent filling defect is appreciated on the bilateral retrograde urograms. Mild bilateral hydronephrosis is present. However, the final image demonstrates decompression of each renal collecting system with only minimal residual contrast seen s een in each collecting system. Correlation with intraoperative findings is recommended.
--- NOTE | 2020-05-25 12:27 | OP ---
DATE OF PROCEDURE: 05/25/2020 PREOPERATIVE DIAGNOSIS: Bilateral ureteral stents. POSTOPERATIVE DIAGNOSIS: Bilateral ureteral stents. PROCEDURES PERFORMED: 1. Cystoscopy. 2. Removal of stents. 3. Bilateral retrogrades. ANESTHETIC: General. ESTIMATED BLOOD LOSS: Minimal. FINDINGS: There were 2 small bladder stones, came out after the stents were removed. Retrograde study showed no persistent filling defects. Ureters bilaterally drained well. There was a little bit of narrowing on the left side where the initial stone was in the proximal ureter, but ureter came by it and the upper tracts completely emptied. He does have some smaller stone fragments in the each kidney. These were not easily seen on today's x-ray on the left. On the right side, we could see some small ones. Both had been treated and I think just small fragments remaining, so we did not do any ureteroscopy to try to get these out. DESCRIPTION OF PROCEDURE: After obtaining written and verbal consent from the patient, after receiving 2 g of Mefoxin, he was taken to the operating suite. He was placed in a supine position on the treatment table. PlexiPulses were placed on his lower extremities and turned on. He was given a general anesthetic and oral obturator intubation, placed in the dorsal lithotomy position, sterilely prepped and draped with Betadine. The fluoroscopy unit was positioned over him and the stents were in good position. He had a little bit of meatal stenosis, but we were able to pass a 22-Tajik sheath, well lubricated, through the male urethra into the bladder. He had a moderately enlarged lateral lobes and a small median lobe. There was 1+ trabeculation of the bladder. Stents in good position. No tumor, foreign bodies, or stones. The left stent was grasped and removed. A guidewire was fed up in the region of the renal pelvis. The guidewire was removed and a 5-Tajik Pollack catheter was advanced over it. Contrast was then injected, filling out the entire collecting system and ureter as we pulled the Pollack catheter out. We then watched this for a few minutes endoscopically, it drained, and fluoroscopically drained well. I did the same on the right side. It also drained well. Two little stone fragments were in the bladder at the end of the case, they were tiny. We did not remove them. They were not there at the start, so probably just washed out adjacent to the stent. At this point, the bladder was drained. The instruments were removed. He was taken out of the dorsal lithotomy position. He was awakened, extubated, and taken by stretcher to recovery room. Job ID: [id number]
== END 2020-05-25 11:43 | disposition home or self-care (01) ==
LOC: SDC 07:34
PROVIDERS: ATTEND Urology
PROC: BT14ZZZ Fluoroscopy of Kidneys, Ureters and Bladder (ICD-10-PCS; principal; 2020-05-25)
PROC: 0TP98DZ Removal of Intraluminal Device from Ureter, Via Natural or Artificial Opening Endoscopic (ICD-10-PCS; 2020-05-25)
PROC: 0TP98DZ Removal of Intraluminal Device from Ureter, Via Natural or Artificial Opening Endoscopic (ICD-10-PCS; 2020-05-25)
DX: N13.2 Hydronephrosis with renal and ureteral calculous obstruction (principal); N21.0 Calculus in bladder; N35.911 Unspecified urethral stricture, male, meatal; N32.89 Other specified disorders of bladder; F32.9 Major depressive disorder, single episode, unspecified; I10 Essential (primary) hypertension; I48.91 Unspecified atrial fibrillation; E11.9 Type 2 diabetes mellitus without complications; Z79.2 Long term (current) use of antibiotics; Z79.899 Other long term (current) drug therapy
CPT/HCPCS: 74420; J0694; J1100; J2405; J2704; J3010